=== PATIENT | male | born 1990 | race Two or more races ===

== ENCOUNTER 2018-02-08 14:47 | Emergency (ER) | payer SELFPAY ==
[~2018-02-08] VITALS: Ht 167.6 cm; Wt 77.1 kg
[2018-02-08] MEDS ORDERED: CLOTRIMAZOLE15 GM TOPIC (14:53)
[2018-02-08] MEDS ORDERED: IBUPROFEN600 MG ORAL (14:53)
[2018-02-08 15:17] VITALS: BP_SYST 128; BP_SYST 130; BP_DIAS 70; BP_DIAS 74
--- NOTE | 2018-02-08 15:42 | Emergency Room Report ---
History of Present Illness General Chief Complaint: Pain Source: Patient Present Illness HPI Patient presents emergency department today complaining of bilateral foot pain. Patient has bilateral foot pain with inflammation. Patient states that he has been walking on his foot all day. Patient states that he's homeless. Patient denies any chest pain shortness breath. Patient states that he is not hungry. No other complaints are noted. Symptoms noted to be moderate. Patient denies any suicidal homicidal ideation auditory or visual hallucinations. Patient has no other complaints.No other modifying factors. No other associated signs and symptoms. No other complaints were noted. Allergies: Coded Allergies: No Known Allergies (Unverified , 02/08/18) Patient History Past Medical History: none Past Surgical History: none Pertinent Family History: none Social History: Denies: smoking, alcohol use, drug use Reviewed Nursing Documentation: PMH: Agreed; PSxH: Agreed Nursing Documentation-PMH Past Medical History: No Stated History Review of Systems All Other Systems: negative except mentioned in HPI Physical Exam Vital Signs Date Time Temp Pulse Resp B/P (MAP) Pulse Ox O2 Delivery O2 Flow Rate FiO2 02/08/18 14:44 98.4 118 16 130/70 99 Room Air Sp02 EP Interpretation: reviewed, normal General Appearance: normal inspection, well appearing, no apparent distress, alert Head: atraumatic Eyes: bilateral eye normal inspection ENT: normal ENT inspection, hearing grossly normal, normal voice Neck: normal inspection, full range of motion, supple, no bony tend Respiratory: normal inspection, lungs clear, normal breath sounds, no respiratory distress, no retraction, no wheezing Cardiovascular #1: regular rate, rhythm, no edema Gastrointestinal: normal inspection, normal bowel sounds, non tender, soft, no guarding, no hernia Genitourinary: no CVA tenderness Musculoskeletal: back normal, normal range of motion, inflammation - Bilateral foot, athlete's foot Neurologic: normal inspection, alert, responsive, speech normal Psychiatric: normal inspection, judgement/insight normal, mood/affect normal Skin: other - Athlete's foot inflamed skin on foot Medical Decision Making Diagnostic Impression: Primary Impression: Tinea pedis Additional Impression: Pain ER Course Patient presents emergency department today complaining of foot pain. Differential considerations include cellulitis, tinea pedis, arthritis just name a few. Patient's exam is consistent with tinea pedis. There is no evidence cellulitis. I felt the patient would benefit from cream antifungal. Patient was written a prescription. Patient was given pain medications. Given patient is homeless we contacted our social secretary and provided to necessarily resources for the patient. We'll discharge patient once the patient is clear for discharge. Last Vital Signs Date Time Temp Pulse Resp B/P (MAP) Pulse Ox O2 Delivery O2 Flow Rate FiO2 02/08/18 15:17 98.0 100 16 128/74 99 Room Air Status: improved Disposition: HOME, SELF-CARE Condition: Stable Scripts Clotrimazole* (LOTRIMIN*) 15 Gm Cream..g. 1 APPLIC TOPIC TWICE A DAY for 14 Days, GM Prov: Tian Milton MD 02/08/18 Ibuprofen* (MOTRIN*) 600 Mg Tablet 600 MG ORAL Q8H PRN for For Pain, #30 TAB 0 Refills Prov: Tian Milton MD 02/08/18 Referrals: NOT CHOSEN [facility]/,REFERRING (PCP) Patient Instructions: Athlete's Foot, [id number] Tian Milton MD Feb 08, 2018 15:42
[2018-02-08 18:29] VITALS: BP 124/72
[2018-02-08 18:31] VITALS: BP 124/72
[2018-02-09] MEDS ORDERED: RISPERDAL2 MG ORAL (06:08)
== END 2018-02-08 18:15 | disposition home or self-care (01) ==
LOC: EDBD 14:47 → EMR 14:52
DX: B35.3 Tinea pedis (principal); M79.672 Pain in left foot; M79.671 Pain in right foot
CPT/HCPCS: 99283

== ENCOUNTER 2018-02-08 21:34 | Emergency (ER) | payer SELFPAY ==
[~2018-02-08] VITALS: Ht 170.2 cm; Wt 81.6 kg
[~2018-02-08 21:34] MED LIST: CLOTRIMAZOLE15 GM TOPIC; IBUPROFEN600 MG ORAL
[2018-02-08] MEDS ORDERED: Acetaminophen 500mg (ES) tab ORAL ONE (22:00)
--- NOTE | 2018-02-08 23:31 | Emergency Room Report ---
History of Present Illness General Chief Complaint: Behavioral Complaint Source: Patient, EMS Present Illness HPI 27-year-old male resents ED for evaluation. Brought in by EMS. States that he is hearing voices. States the voices are not seeing anything in particular. Denies side or HI. States he used to take risperdol but does not have medication at this time. Denies drug use. Complaining of pain to his legs because he's been walking all day. Throbbing, 7 out of 10, nonradiating. No other aggravating relieving factors. Denies any other associated symptoms Allergies: Coded Allergies: PEANUT (Unverified Allergy, Unknown, 02/08/18) Patient History Past Medical History: psych hx Past Surgical History: none Pertinent Family History: none Social History: Denies: smoking, alcohol use, drug use Reviewed Nursing Documentation: PMH: Agreed; PSxH: Agreed Nursing Documentation-PMH Past Medical History: No History, Except For Hx Diabetes: Yes History Of Psychiatric Problem: Yes - bipolar, schizophrenia Review of Systems All Other Systems: negative except mentioned in HPI Physical Exam Vital Signs Date Time Temp Pulse Resp B/P (MAP) Pulse Ox O2 Delivery O2 Flow Rate FiO2 02/08/18 21:27 98.4 98 16 145/92 98 Room Air Sp02 EP Interpretation: reviewed, normal General Appearance: no apparent distress, alert, GCS 15, non-toxic Head: normocephalic Eyes: bilateral eye normal inspection, bilateral eye PERRL ENT: normal ENT inspection Neck: normal inspection Respiratory: normal inspection Cardiovascular #1: normal inspection Gastrointestinal: normal inspection Rectal: deferred Genitourinary: no CVA tenderness Musculoskeletal: normal inspection Neurologic: alert, oriented x3, responsive, motor strength/tone normal, sensory intact, speech normal Psychiatric: no suicidal/homicidal ideation, no delusions, anxious Skin: normal inspection Lymphatic: normal inspection Medical Decision Making Diagnostic Impression: Primary Impression: Behavioral disorder ER Course Hospital Course 27-year-old male presents ED hearing voices. Not compliant with his medications. No SI or HI Differential diagnoses include: Psychosis, EtOH, drug abuse Clinical course patient placed in chair. Vital stable. After initial history, physical exam reveals male in no acute distress. Patient maintains good eye contact during exam. Mentating appropriately. No signs of delusions. Patient states that he used to take risperdol does not have medication at this time. Denies drug use. Patient given Risperdal here. Allowed to rest. On reassessment patient states he feels better. No longer having hallucinations. Continues to not have SI or HI. No indication for emergent psychiatric evaluation at this time. Patient given mental health referrals. Given prescription for Risperdal. Patient denies care home referrals i. I feel this is a highly complex case requiring extensive working including EKG/Rhythm strip, Xray/CT/US, Blood/urine lab work, repeat exams while in ED, and administration of strong opiates/narcotics for pain control, admission to hospital or close patient follow up. Diagnosis -behavioral disorder Stable and discharged to home with Rx Risperdol. Followup with PMD/psych. Return to ED if symptoms recur or worsen Last Vital Signs Date Time Temp Pulse Resp B/P (MAP) Pulse Ox O2 Delivery O2 Flow Rate FiO2 02/08/18 21:27 98.4 98 16 145/92 98 Room Air Status: improved Disposition: HOME, SELF-CARE Condition: Stable Scripts Risperidone* (RISPERDAL*) 2 Mg Tablet 2 MG ORAL DAILY, #30 TAB 0 Refills Prov: Jesus Bess MD 02/09/18 Referrals: NOT CHOSEN IPA/,REFERRING (PCP) Jesus Bess MD Feb 08, 2018 23:31
[2018-02-09] VITALS: BP 133/84
[2018-02-09 04:30] VITALS: BP 145/88
[2018-02-09] MEDS ORDERED: RISPERDAL2 MG ORAL (06:08)
[2018-02-09 06:25] VITALS: BP 139/87
== END 2018-02-09 06:29 | disposition home or self-care (01) ==
LOC: EDBD 21:34 → EMR 22:02
DX: F91.8 Other conduct disorders (principal); M79.606 Pain in leg, unspecified; F20.9 Schizophrenia, unspecified; F31.9 Bipolar disorder, unspecified; E11.9 Type 2 diabetes mellitus without complications; Z91.010 Allergy to peanuts
CPT/HCPCS: 99283